=== PATIENT | male | born 1955 | race Hispanic/Latino ===

== ENCOUNTER 2016-07-04 17:11 | Emergency (ER) | payer MEDICARE, OTHER ==
[2016-07-04 17:11] VITALS: BMI 27.2
[2016-07-04] MEDS ORDERED: TDAP Vaccine 0.5 mL Syr IM ONE (17:31)
[2016-07-04] MEDS ORDERED: Sodium Chloride 0.9% 1,000 ML IV STA ×3 (17:31→18:52)
--- NOTE | 2016-07-04 17:38 | ED PDOC ---
Arrival/HPI - General Chief Complaint: Alcohol Ingestion Time Seen by Provider: 07/04/16 17:14 Historian: Patient - History of Present Illness Narrative History of Present Illness (Text): 07/04/16 17:30 61 year old male with a past medical history that includes HIV (CD4 count 700- 800, viral load non detectable as per patient) and Hep C presents to the emergency department with multiple abrasions to the face and nose from a fall after getting out of the car while intoxicated prior to arrival. Patient is unable to recall how he fell. No visual complaints or eye pain. No neck pain. No back pain. He has pain to his left hip but that is chronic. He aso states he has a wound there that he's been managing at home. Denies other complaints at this time. PMD: Dr. 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 Chromic drainage to L hip MRSA - Anesthesia Hx Anesthesia: Yes Hx Anesthesia Reactions: No Hx Malignant Hyperthermia: No - Suicidal Assessment Feels Threatened In Home Enviroment: No Family/Social History - Physician Review Nursing Documentation Reviewed: Yes Family/Social History: Unknown Family HX Smoking Status: Light Smoker < 10 Cigarettes Daily Hx Alcohol Use: Yes Frequency of alcohol use: Few days per week Hx Substance Use: No Hx Substance Use Treatment: No Allergies/Home Meds Allergies/Adverse Reactions: Allergies No Known Allergies Allergy (Verified 02/21/14 12:17) Home Medications: Home Meds Medication Instructions Recorded Confirmed Ritonavir [Norvir] 100 mg PO DAILY 05/15/12 07/04/16 Tipranavir [Aptivus] 250 mg PO DAILY 05/15/12 07/04/16 Alprazolam [Xanax] 2 mg PO Q8 PRN 02/21/14 07/04/16 Amoxicillin/Clavulanate [Augmentin 875 mg PO BID 07/04/16 07/04/16 875 MG-125 MG Tab] Sulfamethoxazole/Trimethoprim 500 mg PO BID 07/04/16 07/04/16 [Bactrim DS Tab] Review of Systems - Review of Systems Systems not reviewed;Unavailable: Intoxicated Physical Exam Vital Signs Reviewed: Yes Vital Signs Temp Pulse Resp BP Pulse Ox 07/04/16 21:09 84 16 112/49 L 96 07/04/16 20:22 98.0 F 79 16 95 07/04/16 18:53 98.2 F 90 16 105/59 L 98 07/04/16 17:11 98.4 F 101 H 18 93/55 L 97 Temperature: Afebrile Blood Pressure: Hypotensive Pulse: Tachycardic Respiratory Rate: Normal Appearance: Positive for: Well-Appearing, Non-Toxic, Comfortable Pain Distress: None Mental Status: Positive for: other (Awake, alert) Finger Stick Blood Glucose: 102 - Systems Exam Head: Present: Normocephalic, Abrasion (Abrasions to the face and nose. ) Pupils: Present: PERRL Extroacular Muscles: Present: EOMI Conjunctiva: Present: Normal Mouth: Present: Moist Mucous Membranes, Normal Teeth Nose (External): Present: Abrasion Nose (Internal): No: No Active Bleeding, Epistaxis Neck: Present: Normal Range of Motion. No: MIDLINE TENDERNESS Respiratory/Chest: Present: Clear to Auscultation, Good Air Exchange. No: Respiratory Distress, Accessory Muscle Use Cardiovascular: Present: Regular Rate and Rhythm, Normal S1, S2. No: Murmurs Abdomen: Present: Normal Bowel Sounds. No: Tenderness, Distention, Peritoneal Signs Back: Present: Normal Inspection. No: Midline Tenderness, Paraspinal Tenderness Upper Extremity: Present: Normal Inspection. No: Cyanosis, Edema Lower Extremity: Present: Other (Left hip: Open wound, 3 in. long x 1 in. wide, No erythema, no warmth, dressing changed by me). No: Edema Neurological: Present: GCS=15, CN II-XII Intact Skin: Present: Warm, Dry, Normal Color. No: Rashes Psychiatric: Present: Alert, Normal Concentration Medical Decision Making ED Course and Treatment: Impression: 61 year old male with a past medical history that includes HIV (CD4 count 700-800, viral load non detectable as per patient) and Hep C presents to the emergency department with multiple abrasions to the face and nose from a fall after getting out of the car while intoxicated prior to arrival. Differential Diagnosis included but are not limited to: Fall r/o ICH r/o Fracture, Alcohol Use, Dehydration Plan: -- CT's Head, Maxillofacial, Cervical spine -- Labs -- Reassess and disposition Prior Visits: Notes and results from previous visits were reviewed. Patient last seen in ED on 03/18/16 for fall while intoxicated and discharged home. Progress Notes: 07/04/16 17:49 Changed dressing on open wound. Patient's blood pressure low and improved with IVF as ordered. Patient does not have any symptoms of lightheadedness or dizziness. 07/04/16 21:29 Patient requesting to sign out against medical advice. He does not want to wait for repeat blood work. I have personally explained to the patient that choosing to do so may result in permanent bodily harm or . I have discussed at great length that without further evaluation and monitoring there may be unforeseen circumstances and/or deterioration causing permanent bodily harm or as a result of their choice. The patient is alert, oriented, and shows the mental capacity to make clear decisions regarding the patients health care at this time. The patient continues to wish to leave against medical advice. Patient repeated the risks back to me and expresses understanding. In light of the patients decision to leave against medical advice, follow-up has been arranged and the patient is aware of the importance to following up as instructed. The patient has been advised that they should return to the emergency room immediately if they change their mind at any time, or if their condition begins to change or worsen in any way.. Patient ambulating without difficulty with cane and at his baseline. He is not clinically intoxicated. Patient family member came to pick him up. - Lab Interpretations Lab Results: 07/04/16 17:48 07/04/16 17:48 Lab Results 07/04/16 17:48: WBC 8.2 D, RBC 4.33, Hgb 10.4 L, Hct 33.0 L, MCV 76.2 L, MCH 24.0 L, MCHC 31.5, RDW 16.5 H, Plt Count 361, MPV 8.2, Gran % 49.4 L, Lymph % ( Auto) 34.8, Emanuel % (Auto) 12.8 H, Eos % (Auto) 2.8, Baso % (Auto) 0.2, Gran # 4.05, Lymph # 2.9, Emanuel # 1.1 H, Eos # 0.2, Baso # 0.02, pO2 44, VBG pH 7.30 L, VBG pCO2 50.0, VBG HCO3 24.6, VBG Total CO2 26.1, VBG O2 Sat (Calc) 80.8 H, VBG Base Excess -2.4 L, VBG Potassium 3.5 L, Glucose 99, Lactate 3.2 H, FiO2 21.0, Sodium 136.0, Potassium 3.6, Chloride 104.0, Carbon Dioxide 24, Anion Gap 19, BUN 10, Creatinine 0.9, Est GFR ( Amer) > 60, Est GFR (Non-Af Amer) > 60 , Random Glucose 100, Calcium 9.3, Total Bilirubin 0.3, AST 27, ALT 22, Alkaline Phosphatase 104, Total Protein 8.0, Albumin 3.7, Globulin 4.3, Albumin/ Globulin Ratio 0.9 L, Venous Blood Potassium 3.5 L, Alcohol, Quantitative 257 H 07/04/16 17:17: POC Glucose (mg/dL) 102 - RAD Interpretation Narrative RAD Interpretations (Text): EXAM: CT Head Without Intravenous Contrast FINDINGS: There is no acute skull fracture, intracranial hemorrhage, extraaxial collection , or acute transcortical infarction. The ventricles are normal in size and contour without mass effect or midline shift. The visualized paranasal sinuses, tympanomastoid cavities, and orbits are normal. IMPRESSION: No acute intracranial i Iury. Dictated and Authenticated by: Mona Batista MD 07/04/2016 7:03 PM Eastern Time ([place] & [place]) EXAM: CT Maxillofacial Without Intravenous Contrast FINDINGS: Minimal left infraorbital soft tissue swelling without foreign body. There is no acute facial or mandibular fracture. No temporomandibular joint dislocation. Intraorbital soft tissue structures are intact bilaterally. The paranasal sinuses and mastoid air cells are clear. IMPRESSION: Minimal left infraorbital soft tissue swelling. No acute facial fracture or orbital injury. Dictated and Authenticated by: Mona Batista MD 07/04/2016 7:02 PM Eastern Time ([place] & [place]) EXAM: CT Cervical Spine Without Intravenous Contrast COMPARISON: No relevant prior studies available. FINDINGS: There is straightening of the normal cervical lordosis without acute fracture or spondylolisthesis. There is mild to moderate chronic multilevel degenerative disc disease, uncovertebral arthrosis, and facet arthrosis without aggressive osseous lesion. No visualized paraspinal soft tissue hemorrhage. Scarring in the lung apices. Chronic degenerative changes result in the following: At C2-C3, there is a small central disc protrusion indenting the ventral aspect of the thecal sac. Uncovertebral and facet arthrosis result in mild left neural foraminal stenosis. At C3-C4, there is a small central disc protrusion indenting the ventral aspect of the thecal sac. There is minimal right and mild left neural foraminal stenosis. At C4-C5, there is flattening of the ventral aspect of the thecal sac with minimal right neural foraminal narrowing. At C5-C6, there is mild flattening of the ventral aspect of the thecal sac with moderate right and mild left neural foraminal stenosis. At C6-C7, there is mild central canal stenosis with moderate right and severe left neural foraminal stenosis. At C7-T1, there is no central canal or neural foraminal stenosis. IMPRESSION: No acute cervical spine injury. Degenerative changes resulting in central canal and neural foraminal stenoses as described. Dictated and Authenticated by: Mona Batista MD 07/04/2016 7:05 PM Eastern Time ([place] & [place]) Radiology Orders: 07/04/16 17:29 HEAD W/O CONTRAST [CT] Stat MAXILLOFACIAL W/O CONTRAST [CT] Stat 07/04/16 17:35 CERVICAL SPINE W/O CONTRAST [CT] Stat General Manager [employer]: Welcome Hostess - Medication Orders Current Medication Orders: Discontinued Medications Sodium Chloride (Sodium Chloride 0.9%) 1,000 mls @ 999 mls/hr IV .Q1H1M STA Stop: 07/04/16 18:31 Last Admin: 07/04/16 17:54 Dose: 999 MLS/HR eMAR Start Stop Document 07/04/16 17:54 [email or web address] (Rec: 07/04/16 17:54 [email or web address] [id number] [email or web address]) Intravenous Solution Start Date 07/04/16 Start Time 17:54 End Date 07/04/16 Sodium Chloride (Sodium Chloride 0.9%) 1,000 mls @ 999 mls/hr IV .Q1H1M STA Stop: 04/16/17 18:35 Last Admin: 07/04/16 17:55 Dose: 999 MLS/HR eMAR Start Stop Document 07/04/16 17:55 [email or web address] (Rec: 07/04/16 17:55 [place] [id number]- ATTEND) Intravenous Solution Start Date 07/04/16 Start Time 17:55 End Date 07/04/16 Sodium Chloride (Sodium Chloride 0.9%) 1,000 mls @ 999 mls/hr IV .Q1H1M STA Stop: 07/04/16 19:52 Last Admin: 07/04/16 19:28 Dose: 999 MLS/HR eMAR Start Stop Document 07/04/16 19:28 [email or web address] (Rec: 07/04/16 19:28 [place] [id number]- ATTEND) Intravenous Solution Start Date 07/04/16 Start Time 19:28 End Date 07/04/16 Multivitamins/Vitamin C 10 ml/Thiamine HCl 100 mg/ Folic Acid 1 mg/ Sodium Chloride 1,011.2 mls @ 1,000 mls/hr IV .Q1H1M ONE Stop: 07/04/16 19:53 Last Admin: 07/04/16 19:28 Dose: 1,000 MLS/HR eMAR Start Stop Document 07/04/16 19:28 [email or web address] (Rec: 07/04/16 19:28 [place] [id number]- ATTEND) Intravenous Solution Start Date 07/04/16 Start Time 19:28 End Date 07/04/16 Ketorolac Tromethamine (Toradol) 30 mg IVP STAT STA Stop: 07/04/16 18:54 Last Admin: 07/04/16 19:09 Dose: 30 MG IVP Administration Document 07/04/16 19:09 [facility] (Rec: 07/04/16 19:09 [place] [id number]- ATTEND) Charges for Administration # of IVP Administrations 1 Tetanus/Reduced Diphtheria/Acell Pertussis (Boostrix Vaccine Inj) 0.5 ml IM .ONCE ONE Stop: 07/04/16 17:32 Last Admin: 07/04/16 17:59 Dose: - Scribe Statement The provider has reviewed the documentation as recorded by the Ying Puentes Provider Scribe Attestation: All medical record entries made by the Ying were at my direction and personally dictated by me. I have reviewed the chart and agree that the record accurately reflects my personal performance of the history, physical exam, medical decision making, and the department course for this patient. I have also personally directed, reviewed, and agree with the discharge instructions and disposition. Disposition/Present on Arrival - Present on Arrival Any Indicators Present on Arrival: No History of DVT/PE: No History of Uncontrolled Diabetes: No Urinary Catheter: No History of Decub. Ulcer: No History Surgical Site Infection Following: None - Disposition Have Diagnosis and Disposition been Completed?: Yes Diagnosis: Alcohol use, Head injury, Fall Disposition: AGAINST MEDICAL ADVICE Disposition Time: 22:51 Patient Plan: Discharge Patient Problems: Current Active Problems Problem Status Diagnosed Alcohol use Acute Fall Acute Head injury Acute Condition: IMPROVED Discharge Instructions (ExitCare): Head Injury (ED), Alcohol Intoxication (DC) Additional Instructions: Mr Monroe, thank you for letting us take care of you today. Your provider was Dr. Sharp. You were treated for Alcohol Use, Fall with facial and head injury. The emergency medical care you received today was directed at your acute symptoms. If you were prescribed any medication, please fill it and take as directed. It may take several days for your symptoms to resolve. Return to the Emergency Department if your symptoms worsen, do not improve, or if you have any other problems. Please contact your doctor or call one of the physicians/clinics you have been referred to that are listed on the Patient Visit Information form that is included in your discharge packet. Bring any paperwork you were given at discharge with you along with any medications you are taking to your follow up visit. Our treatment cannot replace ongoing medical care by a primary care provider (PCP) outside of the emergency department. Thank you for allowing the [facility] team to be part of your care today. If you had an X-Ray or CT scan: A Radiologist will review the ED reading if any change in treatment is needed we will contact you. If you had a blood, urine, or wound culture: It will take several days for the results, if any change in treatment is needed we will contact you. If you had an STI test: It will take 48 hours for the results. Please call after 1 week if you have not heard back. Referrals: [facility] Cherelle Cota, [Primary Care Provider] - Follow up with primary
[2016-07-04 17:59] LABS: ADD MANUAL DIFF? NO
[2016-07-04 18:03] LABS: BASO # 0.02 K/mm3 (0.0-2.0); BASO % 0.2 % (0.0-3.0); EOS # 0.2 (0.0-0.7); EOS % 2.8 % (1.5-5.0); GRAN # 4.05 (1.4-6.5); GRAN % 49.4 % (50.0-68.0); LYMPH # 2.9 (1.2-3.4); LYMPH % 34.8 % (22.0-35.0); MEAN CELL VOLUME 76.2 fL (80.0-105.0); MEAN CORPUSCULAR HGB CONC 31.5 g/dl (31.0-37.0); MEAN PLATELET VOLUME 8.2 fl (7.0-11.0); MONO # 1.1 (0.1-0.6); MONO % 12.8 % (1.0-6.0); PLATELET COUNT 361 10^3/uL (120.0-450.0); RED CELL DISTRIBUTION WIDTH 16.5 % (11.5-14.5); VENOUS BLOOD GAS BASE EXCESS -2.4 mmol/L (0.0-2.0); WHITE BLOOD COUNT 8.2 10^3/ul (4.5-11.0)
[2016-07-04 18:12] LABS: ALB/GLOB RATIO 0.9 (1.1-1.8); ALKALINE PHOSPHATASE 104 U/L (38-133); ALT/SGPT 22 U/L (7-56); AST/SGOT 27 U/L (15-59); BILIRUBIN,TOTAL 0.3 mg/dL (0.2-1.3); BLOOD UREA NITROGEN 10 mg/dL (7-21); CALCIUM 9.3 mg/dL (8.4-10.5); CARBON DIOXIDE 24 mmol/L (21-33); CHLORIDE 98 mmol/L (95-110); GFR AFRICAN-AMERICAN > 60; GLUCOSE,RANDOM 100 mg/dL (70-110); POTASSIUM 3.6 mmol/L (3.6-5.0); SODIUM 137 mmol/L (132-148)
[2016-07-04] MEDS ORDERED: Multivitamin (MVI) 10 ML, Thiamine 100 MG, Folic Acid 1 MG in Sodium Chloride 0.9% 1,00... IV ONE (18:53)
[2016-07-04 18:54] VITALS: RESP 16
[2016-07-04 20:43] VITALS: TEMP 98
[2016-07-04 21:09] VITALS: BP 112/49
[2016-07-04 23:56] VITALS: PULSE 80; O2SAT 99
--- NOTE | 2016-07-05 09:21 | CT ---
PROCEDURE: CT HEAD WITHOUT CONTRAST. HISTORY: head injury r/o ich COMPARISON: Comparison made with CT scan brain 03/18/2016 TECHNIQUE: Axial computed tomography images were obtained through the head/brain without intravenous contrast. Radiation dose: Total exam DLP = 811.23 mGy-cm. This CT exam was performed using one or more of the following dose reduction techniques: Automated exposure control, adjustment of the mA and/or kV according to patient size, and/or use of iterative reconstruction technique. FINDINGS: HEMORRHAGE: No acute parenchymal, subarachnoid or extra-axial hemorrhage. Hemorrhage. BRAIN: . Mild chronic white matter ischemic changes seen extending peripherally into the deep white matter both cerebral hemispheres. VENTRICLES: Mild moderate volume loss. CALVARIUM: There are no acute calvarial fracture seen. PARANASAL SINUSES: The visualized paranasal sinuses are well-developed. No fluid levels seen to suggest acute hemorrhage or sinusitis. Minimal mucosal thickening noted within a few ethmoid air cells. MASTOID AIR CELLS: Mastoid air complexes are well-developed and currently well-aerated. OTHER FINDINGS: None. IMPRESSION: No acute intracranial hemorrhage. Mild chronic white matter ischemic changes. Mild moderate generalized volume loss.
--- NOTE | 2016-07-05 09:27 | CT ---
PROCEDURE: CT scan maxillofacial skeleton dated 07/04/2016 COMPARISON: Comparison made with concurrent CT scan brain TECHNIQUE: Total exam DLP = 842.71 mGy-cm. This CT exam was performed using one or more of the following dose reduction techniques: Automated exposure control, adjustment of the mA and/or kV according to patient size, and/or use of iterative reconstruction technique. Findings: The current study reveals no definitive evidence of acute maxillofacial skeletal fracture. The osseous structures appear intact. . Mild left premaxillary soft tissue swelling The visualized paranasal sinuses are well-developed and currently well-aerated. There are no fluid levels seen to suggest acute hemorrhage or sinusitis. Minor mucosal thickening noted within a few ethmoid air cells. The ostiomeatal complexes are patent. The frontal and sphenoethmoidal recesses also patent. Globes intact and lenses appropriately located. There are no retrobulbar hemorrhages or collections. Optic nerves and extraocular musculature unremarkable. The nasal bones and anterior nasal septum intact. Minor degenerative spondylosis of the cervical spine nonspecific however there are a few scattered vertebral body lucencies which are nonspecific. . Note is made of asymmetry of the aryepiglottic folds left-sided which is not well delineated. This could be due to some secretion within the left pyriform sinus which is smaller than the right. Clinical correlation recommended. . Impression: No acute fractures. Mild left premaxillary soft tissue swelling. Minimal mucosal thickening noted within a few ethmoid air cells.
--- NOTE | 2016-07-05 09:37 | CT ---
PROCEDURE: CT Cervical Spine without contrast HISTORY: <fall r/o fx> COMPARISON: None available. TECHNIQUE: Axial computed tomography images were obtained of the cervical spine without the use of intravenous contrast. Coronal and sagittal reformatted images were created and reviewed. Radiation dose: Total exam DLP = 649.58 mGy-cm. This CT exam was performed using one or more of the following dose reduction techniques: Automated exposure control, adjustment of the mA and/or kV according to patient size, and/or use of iterative reconstruction technique. FINDINGS: VERTEBRAE: No evidence of acute compression fractures no retropulsed fragments. Minimal chronic appearing anterior stature loss of the C5 and C6 segments felt to be degenerative in origin. Remaining vertebral bodies otherwise exhibit normal stature. There is mild reversal of the normal cervical lordosis which could be due to patient positioning in the gantry however underlying element of muscle spasm may contribute. DISCS/SPINAL CANAL/NEURAL FORAMINA: Multilevel degenerative spondylosis of the cervical spine. At the C2-C3 level, there is minor disc space narrowing with small focal central and bilateral disc bulge that does appear to indent the ventral surface of the thecal sac. No significant cord compression. Central canal is marginal to minimally narrowed. Exit foramina appear adequate. At the C3-C4 level, disc space height is relatively maintained. Small focal central disc bulge (with the tiny calcification along the posterior margin of the annulus and or posterior longitudinal ligament) the indents the ventral surface of the thecal sac and appears to minimally flatten the ventral surface of the cord. Central canal is marginal to minimally narrowed. The facet joints are slightly hypertrophic. Exit foramina appear narrowed bilaterally. At the C4-C5 level, there is mild disc space narrowing more so along the anterior disc margin. No disc herniation or significant disc bulge. Facets a prominent. Central canal and exit foramina are adequate. Gustavo At the C5-C6 level, there is disc space narrowing with cortical endplate irregularity and small broad-based disc bulge ridge complex which flattens the ventral surface of the thecal sac. Central canal appears slightly narrowed with minimal flattening of the ventral surface of the spinal cord. Uncovertebral and joints are hypertrophic. Facets also hypertrophic on the right and mildly overgrown on left with bilateral foraminal stenosis right greater than left. At the C6-C7 level, similar changes are seen with disc space narrowing, cortical endplate irregularity and small broad-based disc bulge ridge complex contiguous with hypertrophic uncovertebral joints. Exit foramina appear appear narrowed bilaterally more so on the left than the right. PARASPINAL SOFT TISSUES: Prevertebral and paraspinal soft tissues unremarkable. Note again made of asymmetry of the pyriform sinuses left-side of which is smaller than the right possibly due to some residual and or retained secretion. No evidence of apical pneumothorax. The tiny cystic changes of could represent paraseptal emphysema versus small blebs. OTHER FINDINGS: IMPRESSION: No acute fractures. Multilevel degenerative spondylosis of the cervical spine most notably affecting C5-C6 and C6-C7 levels as detailed above.
== END 2016-07-04 21:45 | disposition left against medical advice (07) ==
LOC: ED 17:11
DX: S09.90XA Unspecified injury of head, initial encounter (principal); W19.XXXA Unspecified fall, initial encounter; Z72.89 Other problems related to lifestyle; Z21 Asymptomatic human immunodeficiency virus [HIV] infection status; F17.210 Nicotine dependence, cigarettes, uncomplicated
CPT/HCPCS: 70450; 70486; 72125; 80053; 82803; 82948; 85025; 96374; 99284; G0480; J1885; J3411; J7040